=== PATIENT | female | born 1940 | race Hispanic/Latino ===

== ENCOUNTER 2016-06-10 12:36 | Outpatient (CLI) | payer MEDICARE ==
--- NOTE | 2016-06-14 09:24 | PET Report ---
PET/CT:06/10/16 12:36:00 CLINICAL: Breast cancer staging. RADIOPHARMACEUTICAL: 15.78mCi F18-FDG. COMPARISON: None. TECHNIQUE- Following intravenous injection of F-18 FDG and an approximately 60 minute uptake period, CT and PET images from the mid skull to the upper thighs were acquired with the patient in the fasted state. No contrast was administered. The CT protocol used for this PET CT study is designed for attenuation correction and anatomic localization of PET abnormalities. This traffic control flagger CT is not desired to produce and cannot replace, itpow-ag-udt-art diagnostic CT scans with specific imaging protocols for different body parts and indications. Plasma glucose at the time of this test: 87g/dl. The standardized uptake values (SUV) are normalized to patient body weight and indicate the highest activity concentration (SUV max) in a given disease site. FINDINGS: Brain--Physiologic FDG uptake in the visualized regions of the brain. Neck--Physiologic FDG uptake . Chest--Physiologic FDG uptake in mediastinal blood pool and myocardium. Lungs--No abnormal uptake. No pulmonary nodule or mass. Emphysema and right upper lobe benign scar. Pleura/pericardium--No abnormal uptake. Thoracic nodes--No abnormal uptake. Hepatobiliary--No abnormal uptake. Liver background SUV mean, as a reference for comparing FDG studies, is 2.9 . No liver mass. Spleen--No abnormal uptake. Pancreas--No abnormal uptake. Adrenal Glands--No abnormal uptake. Kidneys/Ureters/Bladder--No abnormal uptake. Abdominopelvic Nodes--No abnormal uptake. Bowel/Peritoneum/Mesentery--No abnormal uptake. Pelvic organs--A paucity of fat and the lack of bowel contrast reduces the accuracy of pelvic imaging. Focal right pelvic FDG uptake is possibly benign uptake in the right ureter with SUV 7.3. Focal presacral FDG uptake is of uncertain etiology with SUV 7.0 and is most arising within the rectum. Bones/Soft Tissues--No abnormal uptake. No suspicious bone lesion. Other findings: Status post left mastectomy and left axillary node dissection. There appears to be a very small right breast. IMPRESSION-Negative study except for two foci of pelvic FDG uptake which is of uncertain etiology and significance. Recommend correlation with a CT of the abdomen and pelvis with both IV and oral contrast.
== END 2016-06-10 12:37 | disposition home or self-care (01) ==
LOC: PET 12:36
PROVIDERS: ATTEND Internal Medicine Hematology & Oncology
DX: C50.319 Malignant neoplasm of lower-inner quadrant of unspecified female breast (principal); R63.4 Abnormal weight loss
CPT/HCPCS: 78815; 82962; A9552